=== PATIENT | male | born 1980 | race Caucasian/White ===

== ENCOUNTER → 2020-11-27 12:14 | Outpatient (BNVA) | payer OTHER, SELFPAY | PROVIDERS: Visit Provider Nurse Practitioner Family | DX: J01.00 Acute maxillary sinusitis, unspecified (principal); Z11.52 Encounter for screening for COVID-19; J32.0 Chronic maxillary sinusitis; R05 Cough; R53.83 Other fatigue; J02.9 Acute pharyngitis, unspecified | CPT/HCPCS: 87635 ==